=== PATIENT | male | born 1965 | race Caucasian/White ===

== ENCOUNTER 2023-03-11 08:38 | Emergency (ER) | payer OTHER ==
[2023-03-11 08:43] VITALS: TEMP 98.2
[2023-03-11] MEDS ORDERED: DIPH,PERTUS(ACELL)TETVAC-LF 0.5 ML VIAL IM ONE (08:52)
[2023-03-11] MEDS ORDERED: LABETALOL 5 MG/ML VIAL MDV IVP STA (08:53)
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
[2023-03-11] MEDS ORDERED: CYCLOPENTOLATE 1% OPHTH SOLN 2 ML BTL LEFT EYE STA (11:01)
[2023-03-11] MEDS ORDERED: PHENYLEPHRINE 2.5% OPHTH DRP 2ML LEFT EYE STA (11:02)
[2023-03-11 11:28] VITALS: RESP 18
[2023-03-11] MEDS ORDERED: LIDOCAINE 1%-EPI 1:100,000 20 ML VIAL SQ STA (12:09)
[2023-03-11] MEDS ORDERED: LIDOCAINE 2%-EPI 1:100,000 20 ML VIAL SQ STA (12:11)
[2023-03-11] MEDS ORDERED: HYDROmorphone 1 MG/ML 1 ML SYRINGE IM STA (13:42)
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
[2023-03-11] MEDS ORDERED: ACET/COD 300 MG/30 MG STARTER PACK 6 TAB BTL PO STA (13:55)
[2023-03-11 14:29] VITALS: BP 165/78; PULSE 78
== END 2023-03-11 14:30 | disposition home or self-care (01) ==
LOC: EC 08:38
DX: S02.85XA Fracture of orbit, unspecified, initial encounter for closed fracture (principal); S01.112A Laceration without foreign body of left eyelid and periocular area, initial encounter; H21.02 Hyphema, left eye; H11.32 Conjunctival hemorrhage, left eye; I25.10 Atherosclerotic heart disease of native coronary artery without angina pectoris; Z88.8 Allergy status to other drugs, medicaments and biological substances; Z79.82 Long term (current) use of aspirin; Z79.899 Other long term (current) drug therapy; Z23 Encounter for immunization; Y04.0XXA Assault by unarmed brawl or fight, initial encounter
CPT/HCPCS: 72125; 70486; 70450; 90715; 99283; 90471; 12002; 96374; 96372; J1170